=== PATIENT | female | born 1955 | race Caucasian/White ===

== ENCOUNTER 2016-10-15 08:47 | Emergency (ER) | payer OTHER ==
[2016-10-15] MEDS ORDERED: OXYCODONE-ACETAMINOPHEN 5-325 MG TABLET PO ONE (09:30)
[2016-10-15] MEDS ORDERED: PROMETHAZINE HCL 25 MG TABLET PO ONE (09:30)
--- NOTE | 2016-10-15 09:44 | ER Document Report ---
ED Hip Pain/Injury - General Chief Complaint: Hip Pain Stated Complaint: LEFT HIP PAIN Notes: Patient rolled over in bed from laying on her left side about 2:30 AM this morning and had a sudden, severe, pain in the left lateral hip region. It is extremely painful to move in any direction or to try to bear weight. Her only relief has been when she lays on her left side. Patient has not had any recent injury or previous problems with this hip. She says that she started walking 2 miles a day on Wednesday, doing so also on Wednesday and Wednesday (yesterday). Patient has walked that distance in the past, but has not done so in the past couple of weeks because of the holidays and just resumed on Wednesday. Did not have any pain in the hip with walking. She has not noticed any swelling or bruising in the hip region. She has noticed some numbness in the left lateral hip going down to the left knee, but no loss of use of the any part of the left leg. No loss of bladder or bowel control. Patient took some 800 mg ibuprofen at 3 AM and it helped relieve the pain only a small amount. Has not had any fevers. Patient is a school nurse. TRAVEL OUTSIDE OF THE [place] IN LAST 30 DAYS: No - Related Data Allergies/Adverse Reactions: No Known Allergies Allergy (Unverified 01/22/14 09:08) Past Medical History - Social History Smoking Status: Never Smoker Cigarette use (# per day): No Frequency of alcohol use: Social Family History: Reviewed & Not Pertinent Patient has suicidal ideation: No Patient has homicidal ideation: No Pulmonary Medical History: Reports: Hx Asthma - SEASONAL Endocrine Medical History: Denies: Hx Diabetes Mellitus Type 1, Hx Diabetes Mellitus Type 2 - Immunizations Hx Diphtheria, Pertussis, Tetanus Vaccination: Yes Review of Systems - Review of Systems Notes: REVIEW OF SYSTEMS: CONSTITUTIONAL : Denies fever. EENT: Denies eye, ear, nose or mouth or throat pain or other symptoms. CARDIOVASCULAR: Denies chest pain. RESPIRATORY: Denies cough, chest congestion, or shortness of breath. GASTROINTESTINAL: Denies abdominal pain or nausea, vomiting, or diarrhea. GENITOURINARY: Denies difficulty or painful urinating, urinary frequency, blood in urine. MUSCULOSKELETAL: See history of present illness. Denies back or neck pain. Denies denies swelling or bruising. No history of blood clots. SKIN: Denies rash or skin lesions. NEUROLOGICAL: Denies LOC or altered mental status. Denies headache. See history of present illness regarding "numbness". Denies motor deficits, loss of bowel or bladder function. ALL OTHER SYSTEMS REVIEWED AND NEGATIVE. Physical Exam - Vital signs Vitals: Temp Pulse Resp BP Pulse Ox 97.4 F 77 16 129/84 H 95 10/15/16 08:58 10/15/16 08:58 10/15/16 08:58 10/15/16 08:58 10/15/16 08:58 Interpretation: Normal - Notes Notes: PHYSICAL EXAMINATION: GENERAL: Well-appearing, in no acute distress. Only ambulates with great difficulty and indicates significant pain to do so. Afebrile. No tachycardia. Normal O2 sat. HEAD: Atraumatic, normocephalic. LUNGS: Breath sounds clear and equal bilaterally. HEART: Regular rate and rhythm without murmurs. ABDOMEN: Soft, nontender. No guarding or rebound. BACK: No tenderness throughout entire back. EXTREMITIES: Patient laying on her left side and appears painful for patient to roll over to her back. Tender to press over the superior lateral aspect of the left knee. Also appears painful for me to passively move the left hip joint and almost any direction. All other joints with normal range of motion without pain. Excellent DP and PT pulses in the left foot. Negative Homans and no signs of clots in either leg. NEUROLOGICAL: Normal speech, normal gait. Normal sensory, motor, and reflex exams. Awake, alert, and oriented x3. Cranial nerves normal. PSYCH: Normal mood, normal affect. SKIN: Warm, dry, no rashes. Course - Re-evaluation Re-evalutation: 10/15/16 12:39 When I went to talk with the patient about the x-ray results, which were normal , she indicated that she feels her problem is from her back and suggested a course of steroids. I was thinking the patient may have a traumatic Azra synovitis since she abruptly resumed an exercise of walking 2 miles a day for the last 3 days and may have been "overuse syndrome". I'm agreeable to a short course of steroids and suggested she continue to try to take some ibuprofen or other end-stage, if her stomach will tolerate them. Also giving her pain medications and the daily is off from work and see if her symptoms resolve. Advised her to return for reevaluation if she develops a fever or a rash such as shingles, or any other worsening symptoms. - Vital Signs Vital signs: Temp Pulse Resp BP Pulse Ox 97.7 F 66 16 129/67 H 96 10/15/16 11:16 10/15/16 11:16 10/15/16 11:16 10/15/16 11:16 10/15/16 11:16 - Diagnostic Test Radiology results interpreted by me: 10/15/16 10:55 X-ray of the left hip is normal. Discharge - Discharge Clinical Impression: Left hip pain, Arthritis of left hip Low back strain Qualifiers: Encounter type: initial encounter Qualified Code(s): S39.012A - Strain of muscle, fascia and tendon of lower back, initial encounter Condition: Stable Disposition: HOME, SELF-CARE Additional Instructions: Leg Pain, Nonspecific We did not find an obvious cause for your leg pain. There's no sign of blood clot, infection, or other serious disease. Possible causes of vague leg pain include muscle or joint inflammation, disc disease in the lower back, pressure on the nerves in the back, or reduced blood flow through the arteries of the leg. Rest the leg. Pain can be eased with an antiinflammatory pain medicine such as ibuprofen. If the pain involves a small area, a heating pad might help. Call the doctor or return if the leg becomes swollen, weak, discolored, or increasingly painful, or if you develop any other significant change in your health. Arthritis Your symptoms are due to arthritis. Arthritis is an inflammation of the joints. There are many types -- osteoarthritis (due to "wear and tear"), auto- immmune arthritis (such as rheumatoid, lupus, Mario's, and others), and crystal -induced arthritis (such as gout and pseudogout). The physician's examination, combined with laboratory tests, will determine the cause of your arthritis. All types of arthritis are treated with antiinflammatory medications. Other medication may be required for special types of arthritis, or if your problem does not respond to the antiinflammatory medicine. Local warmth may be helpful. Move the involved joints through the full range of motion daily. Mild exercise is usually still possible for most persons with arthritis (ask your physician). Swimming provides good exercise without damaging the joints. Contact the physician if you are worsening in any way. You may also have some tenosynovitis of the hip which is inflammation of the lining of the hip joint, perhaps related to your resuming walking a few days ago. Ibuprofen Ibuprofen is an excellent, safe drug for pain control. In addition, it has potent antiinflammatory effects which are beneficial, especially in the treatment of injuries, arthritis, or tendonitis. It's best to take ibuprofen with food. Persons with ulcer disease or allergy to aspirin should notify their physician of this before taking ibuprofen. Take the medication exactly as prescribed. Don't take additional doses unless instructed to do so by your doctor. If you develop wheezing, shortness of breath, hives, faintness, stomach pain, vomiting, or dark black stools, return for re-evaluation at once. STEROID MEDICATION: You have been given a medicine of the cortisone/steroid class. This medication is used to control inflammation or allergy. It is usually only given for a short period of time, until the acute process subsides. There are usually no side effects from short-term use of cortisone-like medications. Some persons feel an increased sense of well-being and are not sleepy at bedtime. Long-term use of cortisone medications is best avoided, unless required for a severe condition. If your condition does not remit, or relapses after the course of corticosteroid medication, you should consult your physician. Oral Narcotic Medication You have been given a prescription for pain control. This medication is a narcotic. It's best taken with food, as nausea can result if taken on an empty stomach. Don't operate machinery or drive within six hours of taking this medication. Do not combine this medicine with alcohol, or with any medication which can cause sedation (such as cold tablets or sleeping pills) unless you get permission from the physician. Narcotics tend to cause constipation. If possible, drink plenty of fluids and eat a diet high in fiber and fruits. Antinausea Medication You have been given a medication to suppress nausea and vomiting. This type of medication can be given as a shot, pill, or suppository. It will usually last for many hours. Pills and shots usually last six to eight hours, suppositories last about 12 hours. For the typical illness, only one or two doses of the medication may be necessary. Mild lightheadedness may occur. This type of medicine can cause drowsiness. Do not drive or operate dangerous machinery while under its influence. Do not mix with alcohol. See your doctor at once if you have muscle spasms or tightness, or uncontrollable motions (particularly of the neck, mouth, or jaw). Persistent vomiting or severe lightheadedness should also be evaluated by the physician. FOLLOW-UP CARE: If you have been referred to a physician for follow-up care, call the physician s office for an appointment as you were instructed or within the next two days. If you experience worsening or a significant change in your symptoms, notify the physician immediately or return to the Emergency Department at any time for re-evaluation. Prescriptions: Oxycodone HCl/Acetaminophen [Percocet 5-325 mg Tablet] 1 - 2 tab PO Q4H PRN #15 tablet PRN Reason: Prednisone [Deltasone 10 mg Tablet] 10 mg PO ASDIR PRN #21 tablet PRN Reason: Promethazine HCl [Phenergan 25 mg Tablet] 1 - 2 tab PO Q6H PRN #15 tablet PRN Reason: Forms: Return to Work
[2016-10-15 11:35] VITALS: BP 129/67
== END 2016-10-15 11:16 | disposition home or self-care (01) ==
LOC: ER 08:47
DX: S39.012A Strain of muscle, fascia and tendon of lower back, initial encounter (principal); M25.552 Pain in left hip; M13.859 Other specified arthritis, unspecified hip; X50.9XXA Other and unspecified overexertion or strenuous movements or postures, initial encounter; Y93.01 Activity, walking, marching and hiking
CPT/HCPCS: 99283

== ENCOUNTER 2017-10-12 07:08 | Day surgery (SDC) | payer OTHER ==
[2017-10-12] MEDS ORDERED: GLYCOPYRROLATE INJ 0.4 MG/2 ML VIAL ONE (07:23)
[2017-10-12] MEDS ORDERED: ONDANSETRON HCL INJ/PF 4 MG/2 ML SDV ONE (07:23)
[2017-10-12] MEDS ORDERED: NALOXONE HCL INJ/PF 0.4 MG/1 ML SDV ONE (07:23)
[2017-10-12] MEDS ORDERED: GLUCAGON,HUMAN RECOMB 1 MG INJ ONE (07:24)
[2017-10-12] MEDS ORDERED: FLUMAZENIL INJ 0.5 MG/5 ML VIAL ONE (07:24)
[2017-10-12] MEDS ORDERED: EPINEPHRINE INJ 1 MG/10 ML DISP.SYRIN ONE (07:24)
[2017-10-12 08:04] LABS: HEMATOCRIT 39.9 % (36.0-47.0); HEMOGLOBIN 13.5 g/dL (12.0-15.5); MEAN CORPUSCULAR HGB CONC 33.9 g/dL (32.0-36.0); MEAN CORPUSCULAR VOLUME 85 fl (80-97); PLATELET COUNT 336 10^3/uL (150-450); RED BLOOD COUNT 4.67 10^6/uL (3.72-5.28); RED CELL DISTRIBUTION WIDTH 13.7 % (11.5-14.0); WHITE BLOOD COUNT 6.2 10^3/uL (4.0-10.5)
[2017-10-12] MEDS: MIDAZOLAM 2 MG/2 ML INJ ONE ×3 (08:57→09:15)
[2017-10-12] MEDS: FENTANYL CITRATE INJ/PF 100 MCG/2 ML AMPUL ONE ×3 (08:59→09:19)
--- NOTE | 2017-10-12 09:52 | Operative Report ---
Operative Report DATE OF SURGERY: 10/12/17 PREOPERATIVE DIAGNOSIS: Iron deficiency anemia POSTOPERATIVE DIAGNOSIS: Iron deficiency anemia. Diverticulosis. 3 column internal hemorrhoids. OPERATION: Esophagogastroduodenoscopy. Colonoscopy. Anoscopy with hemorrhoidal banding 3. TISSUE REMOVED OR ALTERED: Internal hemorrhoids banded COMPLICATIONS: None ESTIMATED BLOOD LOSS: Minimal INTRAOPERATIVE FINDINGS: Normal-appearing esophagus stomach and duodenum. Normal-appearing colon and rectum other than scattered diverticuli in the left and sigmoid colon. Prominent 3 column internal hemorrhoids. PROCEDURE: Informed consent was obtained. Patient was brought to the endoscopy suite. IV sedation with Versed and fentanyl was administered. Endoscope was passed via the patient's mouth into the second portion of the duodenum. The duodenum appeared to be normal. The stomach appeared normal. No ulcers no erosions were seen. The esophagus appeared normal. Patient was repositioned. Digital rectal exam revealed no palpable perianal masses. Endoscope was passed via the patient's anus it was fed to the cecum. The bowel prep was good. Visualization was good. The cecum right colon and transverse colon appeared normal. The descending colon and the sigmoid colon has scattered diverticuli but otherwise appeared normal. The rectum appeared normal. Anoscopy was performed it demonstrated a prominent 3 column internal hemorrhoids. Using the suction rubber banding device, all 3 hemorrhoidal complexes were banded in sequence. The left lateral, followed by right anterior , and finally the right posterior hemorrhoidal complexes were banded. Great care was taken to place the bands above the level of the dentate line. Patient had minimal discomfort during the procedure. Patient tolerated procedure well with no apparent complications and was taken to the recovery area in stable condition.
--- NOTE | 2017-10-12 09:58 | PDOC DISCHARGE SUMMARY ---
Discharge Summary (SDC) - Discharge Final Diagnosis: Iron deficiency anemia. Internal hemorrhoids. Date of Surgery: 10/12/17 Discharge Date: 10/12/17 Condition: Good Treatment or Instructions: Esophagogastroduodenoscopy, colonoscopy, and anoscopy with hemorrhoidal banding 3. February discharge patient home when met discharge criteria. Follow-up with me in 2 weeks. Prescriptions: Docusate Sodium [Colace 100 mg Capsule] 100 mg PO BID #60 capsule Oxycodone HCl/Acetaminophen [Percocet 5-325 mg Tablet] 1 - 2 tab PO ASDIR PRN # 15 tablet PRN Reason: Referrals: MARYAM SALGADO DO [Primary Care Provider] - Discharge Diet: As Tolerated Discharge Activity: Activity As Tolerated Report the Following to Your Physician Immediately: Increase in Pain - Normal to have mild perianal discomfort. Abnormal to have severe perianal pain., Fever over 101 Degrees, Unusual Bleeding - Normal to have a small amount of bleeding. Other Items to Report to MD: Inability to urinate
[2017-10-12] MEDS ORDERED: OXYCODONE-ACETAMINOPHEN 5-325 MG TABLET ONE (10:10)
[2017-10-12 11:32] VITALS: BP 109/57
== END 2017-10-12 11:00 | disposition home or self-care (01) ==
LOC: END 07:08
PROVIDERS: ATTEND Surgery
PROC: 0DJD8ZZ Inspection of Lower Intestinal Tract, Via Natural or Artificial Opening Endoscopic (ICD-10-PCS; principal; 2017-10-12 08:30)
PROC: 0DJ08ZZ Inspection of Upper Intestinal Tract, Via Natural or Artificial Opening Endoscopic (ICD-10-PCS; 2017-10-12 08:30)
PROC: 06LY4CC Occlusion of Hemorrhoidal Plexus with Extraluminal Device, Percutaneous Endoscopic Approach (ICD-10-PCS; 2017-10-12 08:30)
DX: K57.30 Diverticulosis of large intestine without perforation or abscess without bleeding (principal); K64.8 Other hemorrhoids; D50.9 Iron deficiency anemia, unspecified; K62.5 Hemorrhage of anus and rectum; J45.909 Unspecified asthma, uncomplicated; I83.93 Asymptomatic varicose veins of bilateral lower extremities; Z79.51 Long term (current) use of inhaled steroids; Z79.899 Other long term (current) drug therapy; Z79.1 Long term (current) use of non-steroidal anti-inflammatories (NSAID)
CPT/HCPCS: 43235; 45378; 46221; 36415; 85027; J2250; J3010; 46600; J0171; J1610; J2310; J2405; J3490

== ENCOUNTER 2017-10-27 12:24 | Emergency (ER) | payer OTHER ==
[2017-10-27] MEDS ORDERED: ONDANSETRON HCL INJ/PF 4 MG/2 ML SDV ONE ×2 (12:40→12:42)
[2017-10-27] MEDS ORDERED: ONDANSETRON HCL INJ/PF 4 MG/2 ML SDV IV ONE (12:50)
--- NOTE | 2017-10-27 13:45 | ER Document Report ---
ED GI Bleed / Rectal Pain - General Chief Complaint: Rectal Bleeding Stated Complaint: RECTAL BLEEDING Time Seen by Provider: 10/27/17 13:31 Notes: Patient is here for rectal bleeding. She says that she had a colonoscopy done on October 12, by Dr. Burk, along with banding of some hemorrhoids. She was not told that she had any polyps removed during the procedure. She did well and had no problems after the procedure until this morning when she had 2 bloody bowel movements. She contacted Dr. Burk, who saw her this morning and examined her and could not find any abnormality or bleeding. Patient went on to work, but then had 5 bloody stools while at work and was brought here by EMS. When she tried to go into the bathroom here, the patient passed out. She is nauseated and has vomited a couple of times this morning, but no blood in the vomitus. She hit her forehead on the floor here and chipped her right upper central incisor in the fall. Denies other injuries. Patient's reason for getting the colonoscopy was because her iron level was low , not because of any other problems. It was her first colonoscopy. Patient is not on any blood thinners. Has been taking a lot of Motrin for knee pain. TRAVEL OUTSIDE OF THE [place] IN LAST 30 DAYS: No - Related Data Allergies/Adverse Reactions: No Known Allergies Allergy (Verified 10/12/17 07:16) Past Medical History - Social History Smoking Status: Unknown if Ever Smoked Cigarette use (# per day): No Family History: Reviewed & Not Pertinent - Past Medical History Cardiac Medical History: Denies: Hx Coronary Artery Disease Pulmonary Medical History: Reports: Hx Asthma - SEASONAL Endocrine Medical History: Denies: Hx Diabetes Mellitus Type 1, Hx Diabetes Mellitus Type 2 GI Medical History: Reports: Hx Colonoscopy, Hx Endoscopy - See HPI.. Denies: Hx Ulcerative Colitis Musculoskeltal Medical History: Denies Hx Arthritis Surgical Hx: Negative Past Surgical History: Denies: Hx Hysterectomy - Immunizations Hx Diphtheria, Pertussis, Tetanus Vaccination: Yes Review of Systems - Review of Systems Notes: REVIEW OF SYSTEMS: CONSTITUTIONAL : Denies fever. EENT: Denies eye, ear, nose or mouth or throat pain or other symptoms. CARDIOVASCULAR: Denies chest pain. RESPIRATORY: Denies cough, chest congestion, or shortness of breath. GASTROINTESTINAL: Denies abdominal pain or nausea, vomiting, or diarrhea. See HPI. GENITOURINARY: Denies difficulty or painful urinating, urinary frequency, blood in urine. MUSCULOSKELETAL: Denies back or neck pain. Denies joint pain or swelling. SKIN: Denies rash or skin lesions. NEUROLOGICAL: Denies LOC or altered mental status. Denies headache. Denies sensory loss or motor deficits. ALL OTHER SYSTEMS REVIEWED AND NEGATIVE. Physical Exam - Vital signs Vitals: Resp BP Pulse Ox 11 L 98/67 L 98 10/27/17 13:00 10/27/17 13:00 10/27/17 13:00 Interpretation: Normal - Blood pressure by EMS was 139/84 with a heart rate of 93. - Notes Notes: PHYSICAL EXAMINATION: GENERAL: Well-appearing, in no acute distress. Vital signs were all normal at this time. Patient did apparently have a vasovagal syncopal episode in the bathroom next to her examination room. HEAD: Atraumatic, normocephalic. EYES: Pupils equal round and reactive to light, extraocular movements intact. ENT: oropharynx clear without exudates. Moist mucous membranes. NECK: Normal range of motion, supple. LUNGS: Breath sounds clear and equal bilaterally. HEART: Regular rate and rhythm without murmurs. ABDOMEN: Soft, nontender. No guarding or rebound. No masses. Rectal exam: Small amount of dried blood around the anus. No active bleeding of fresh blood. I do see what looks like 1 surgical incision about 1 cm in length externally. Patient says she was told that she did not have any incisions of the hemorrhoids. I did not do an internal digital examination because of pain to the patient and to avoid duplicity of this painful exam. BACK: No tenderness throughout entire back. EXTREMITIES: Normal range of motion without pain. NEUROLOGICAL: Normal speech, normal gait. Normal sensory, motor, and reflex exams. Awake, alert, and oriented x3. Cranial nerves normal. SKIN: Warm, dry, no rashes. Course - Re-evaluation Re-evalutation: 10/27/17 14:[address] Burk, who requested that I talk with the hospital surgicalist environmental services supervisor. Spoke with Dr. Jane who will see the patient. - Vital Signs Vital signs: Temp Pulse Resp BP Pulse Ox 97.5 F 13 118/66 99 10/27/17 13:46 10/27/17 15:01 10/27/17 15:01 10/27/17 15:01 - Laboratory Result Diagrams: 10/27/17 12:58 10/27/17 12:58 Laboratory results interpreted by me: 10/27/17 10/27/17 12:58 12:58 Hgb 11.2 L Hct 33.2 L Sodium 135.5 L Carbon Dioxide 21 L Glucose 147 H Total Protein 5.8 L Discharge - Discharge Clinical Impression: Rectal bleeding, Vasovagal syncope Condition: Stable Disposition: HOME, SELF-CARE Additional Instructions: SYNCOPAL EPISODE: Syncope (fainting or near-fainting) can occur from many different health problems. Or it can be a simple fainting spell requiring no treatment. It is safe for you to go home, but further evaluation will likely be necessary. Your work-up may include tests for internal bleeding, heart disease, medication problems, or near-strokes. Tests are not always required, however, depending on the nature of your problem. The warning signs of an impending faint include: dizziness, lightheadedness , nausea, hot flashes, tingling, and weakness. If this happens, lay down and put your feet up, then wait until all of these symptoms have passed before standing up again. If these episodes become recurrent, or if you develop chest pain, heart palpitations, mental confusion, blurred vision, or headache, then you should call the physician, or go to the emergency room. Vasovagal Symptoms Your symptoms seem to be due to a fall in blood pressure, caused by the interaction of your nervous system with your circulatory system. This can result in abnormally slow pulse rate, faintness, abnormal sensations, low blood pressure, difficulty with vision, or fainting (syncope). Vasovagal symptoms may be brought on by emotional distress, pain, dehydration, bleeding, or medication effects. Often, no cause can be identified. Your exam has revealed no signs of a serious problem. Usually, no further tests are required. However, if further workup has been recommended it's important that you follow up as instructed. Should you feel lightheaded or "about to faint," you should sit or lie down as quickly as possible. The episode will usually pass. Recurring symptoms will require further evaluation to determine the cause. Call the physician if you develop severe prolonged dizziness, headache, chest pain, shortness of breath, or other new symptoms. Rectal Bleeding, Unclear Cause To establish a cause for your bleeding (or at least make certain there is no serious problem such as a tumor), further evaluation will be necessary. This may include special X-rays, or passage of a scope up into the colon. Be sure to keep your follow-up appointment. Should you develop recurrent brisk bleeding, abdominal pain, fever, lightheadedness, or fever, call the doctor or return at once. FOLLOW-UP CARE: If you have been referred to a physician for follow-up care, call the physician s office for an appointment as you were instructed or within the next two days. If you experience worsening or a significant change in your symptoms, notify the physician immediately or return to the Emergency Department at any time for re-evaluation. Return for reevaluation if you have heavy brisk rectal bleeding. You are being provided with a note to not work tomorrow, but you may return to work on Wednesday. Forms: Return to Work
[2017-10-27] MEDS ORDERED: NORMAL SALINE 1000 ML 1,000 ML IV ONE (13:54)
[2017-10-27 14:12] LABS: ABSOLUTE EOSINOPHILS # (AUTO) 0.1 10^3/uL (0.0-0.6); ABSOLUTE LYMPHOCYTES (AUTO) 2.8 10^3/uL (0.5-4.7); ABSOLUTE MONOCYTES (AUTO) 0.5 10^3/uL (0.1-1.4); ABSOLUTE NEUT (AUTO) 5.2 10^3/uL (1.7-8.2); BASOPHILS % (AUTO) 0.4 % (0-2); EOSINOPHILS % (AUTO) 0.9 % (0-6); HEMATOCRIT 33.2 % (36.0-47.0); HEMOGLOBIN 11.2 g/dL (12.0-15.5); LYMPHOCYTES % (AUTO) 32.8 % (13-45); MEAN CORPUSCULAR HEMOGLOBIN 28.7 pg (27.0-33.4); MEAN CORPUSCULAR HGB CONC 33.8 g/dL (32.0-36.0); MEAN CORPUSCULAR VOLUME 85 fl (80-97); MONOCYTES % (AUTO) 5.9 % (3-13); PLATELET COUNT 349 10^3/uL (150-450); RED BLOOD COUNT 3.91 10^6/uL (3.72-5.28); RED CELL DISTRIBUTION WIDTH 13.4 % (11.5-14.0); TOTAL CELLS COUNTED % (AUTO) 100 %; WHITE BLOOD COUNT 8.6 10^3/uL (4.0-10.5)
[2017-10-27 14:13] LABS: INTERNATIONAL RATION (INR) 0.87; PROTHROMBIN TIME 12.5 SEC (11.4-15.4)
[2017-10-27 14:28] LABS: ALANINE AMINOTRANSFERASE 41 U/L (9-52); ALBUMIN 3.6 g/dL (3.5-5.0); ALKALINE PHOSPHATASE 87 U/L (38-126); ANION GAP 12 (5-19); ASPARTATE AMINO TRANSFERASE 31 U/L (14-36); BILIRUBIN,DIRECT 0.2 mg/dL (0.0-0.4); BILIRUBIN,TOTAL 0.2 mg/dL (0.2-1.3); BLOOD UREA NITROGEN 20 mg/dL (7-20); CARBON DIOXIDE 21 mmol/L (22-30); CHLORIDE 103 mmol/L (98-107); GLUCOSE 147 mg/dL (75-110); POTASSIUM 3.8 mmol/L (3.6-5.0); SODIUM 135.5 mmol/L (137-145); TOTAL PROTEIN 5.8 g/dL (6.3-8.2)
--- NOTE | 2017-10-27 14:51 | PDOC CONSULTATION ---
Consultation Consult Date: 10/27/17 Consult reason:: rectal bleeding post hemorrhoidal banding 10/12/17 History of Present Illness Admission Date/PCP: TIERNEY CORNEJO PA-C History of Present Illness: MARVIN ESTRADA is a 62 year old female Had bleeding per rectum this am. Seen Dr Burk, her surgeon who did colonoscopy and hemorrhoidal banding 10/12/17.He did a rectal exam and found no apparent bleeding. Patient taking motrin 800 mgs BID past 2 weeks. 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 Went to ED. HB noted to be 1.2. Coagulation PT,INR platelets are normal. Past Medical History Cardiac Medical History: Denies: Coronary Artery Disease Pulmonary Medical History: Reports: Asthma - SEASONAL Neurological Medical History: Denies: Seizures Endocrine Medical History: Denies: Diabetes Mellitus Type 1, Diabetes Mellitus Type 2 GI Medical History: Denies: Ulcerative Colitis Musculoskeltal Medical History: Denies: Arthritis Hematology: Denies: Anemia Past Surgical History Past Surgical History: Reports: Tonsillectomy Denies: Hysterectomy Social History Smoking Status: Unknown if Ever Smoked Family History Family History: Reviewed & Not Pertinent Parental Family History Reviewed: Yes Children Family History Reviewed: No Sibling(s) Family History Reviewed.: No Medication/Allergy Home Medications: Albuterol Sulfate [Ventolin HFA MDI 18 GM] 1 - 2 puff IH PRN PRN 01/22/14 Calcium Carbonate/Vitamin D3 [Calcium 600-Vit D3 200 Tablet] 1 tab PO DAILY Estradiol [Estring] 1 each VG .[id number] 01/22/14 Fluticasone/Salmeterol [Advair 250-50 Diskus 28 dose] 1 inh IH DAILY 01/22/14 Ferrous Sulfate 325 mg PO DAILY 10/07/17 Krill/Om-3/Dha/Epa/Phospho/Ast [Krill Oil 500 mg Softgel] 1 each PO DAILY Docusate Sodium [Colace 100 mg Capsule] 100 mg PO BID #60 capsule 10/12/17 Oxycodone HCl/Acetaminophen [Percocet 5-325 mg Tablet] 1 - 2 tab PO ASDIR PRN # 15 tablet 10/12/17 Allergies/Adverse Reactions: No Known Allergies Allergy (Verified 10/12/17 07:16) Review of Systems Constitutional: PRESENT: other - no fever/chills Eyes: PRESENT: other - no vis/hearing changes Cardiovascular: PRESENT: other - no chest pains Respiratory: PRESENT: other - no cough Gastrointestinal: PRESENT: other - bleeding per rectum Neurological: PRESENT: other - syncopal episode likely due to vasovagal reaction Physical Exam Vital Signs: Temp Pulse Resp BP Pulse Ox 97.5 F 14 133/60 H 99 10/27/17 13:46 10/27/17 14:30 10/27/17 14:30 10/27/17 14:30 Intake & Output 10/26/17 10/27/17 10/28/17 06:59 06:59 06:59 Weight 83.915 kg Rectal exam: PRESENT: other - good sphincteric tone. No gross blood on examining finger. Mild tenderness Results Laboratory Results: 10/27/17 12:58 10/27/17 12:58 10/27/17 10/27/17 12:58 12:58 WBC 8.6 RBC 3.91 Hgb 11.2 L Hct 33.2 L MCV 85 MCH 28.7 MCHC 33.8 RDW 13.4 Plt Count 349 Seg Neutrophils % 60.0 Lymphocytes % 32.8 Monocytes % 5.9 Eosinophils % 0.9 Basophils % 0.4 Absolute Neutrophils 5.2 Absolute Lymphocytes 2.8 Absolute Monocytes 0.5 Absolute Eosinophils 0.1 Absolute Basophils 0.0 Sodium 135.5 L Potassium 3.8 Chloride 103 Carbon Dioxide 21 L Anion Gap 12 BUN 20 Creatinine 0.70 Est GFR ( Amer) > 60 Est GFR (Non-Af Amer) > 60 Glucose 147 H Calcium 9.0 Total Bilirubin 0.2 AST 31 ALT 41 Alkaline Phosphatase 87 Total Protein 5.8 L Albumin 3.6 Assessment & Plan - Time Time Spent: 30 to 50 Minutes - Plan Summary Plan Summary: Stop Motrin. Likely have some platelet dysfunction with high dose of Motrin ( 800 mg BID past 2 weeks for knne pains) Rectum packed with surgifoam If still bleeds will need may need to be taken to OR or give platelets
[2017-10-27 15:24] VITALS: BP 118/66
== END 2017-10-27 15:34 | disposition home or self-care (01) ==
LOC: ER 12:24
DX: R55 Syncope and collapse (principal); K62.5 Hemorrhage of anus and rectum; R11.2 Nausea with vomiting, unspecified; Z98.890 Other specified postprocedural states
CPT/HCPCS: 99284; 96361; 96374; 36415; 85025; 85610; 80053; J2405; J7030